=== PATIENT | female | born 1960 | race Caucasian/White ===

== ENCOUNTER 2023-02-17 11:13 | Emergency (ER) | payer BC ==
[~2023-02-17] VITALS: Ht 162.6 cm; Wt 53.5 kg
[2023-02-17] MEDS ORDERED: AMOX-430 PO (12:04)
[2023-02-17 12:10] VITALS: BP 102/57; TEMP 98.4; O2SAT 97
== END 2023-02-17 12:12 | disposition home or self-care (01) ==
LOC: ER 11:19
DX: M79.632 Pain in left forearm (principal); Z79.2 Long term (current) use of antibiotics
CPT/HCPCS: A4663